=== PATIENT | female | born 1950 | race Caucasian/White ===

== ENCOUNTER 2019-12-21 18:12 | Emergency (ER) | payer BC, OTHER ==
[2019-12-21 18:29] VITALS: BP 158/85; PULSE 74; TEMP 98.5; BMI 26.4
--- NOTE | 2019-12-21 19:11 | PDOC ---
Attending Attestation - Resident Resident Name: Yan Cohen - ED Attending Attestation I have performed the following: I have examined & evaluated the patient, The case was reviewed & discussed with the resident, I agree w/resident's findings & plan, Exceptions are as noted
[2019-12-21] MEDS ORDERED: TETRACAINE 0.5% HCL 0.6ML DROPPER.BOTTLE OS ONE (19:49)
[2019-12-21] MEDS ORDERED: FLUORESCEIN NA 1 EA STRIP OS ONE (19:49)
[2019-12-21] MEDS ORDERED: FLUORESCEIN NA 1 EA STRIP ONE (19:54)
[2019-12-21] MEDS ORDERED: TETRACAINE 0.5% OPHTH SOLN 2 ML BOTTLE ONE (19:54)
--- NOTE | 2019-12-23 08:07 | PDOC ---
Documentation entered by Theresa Barriga SCRIBE, acting as scribe for Armando Randall MD. Armando Randall MD: This documentation has been prepared by the maria [email or web address] ma Lincy, SCRIBE, under my direction and personally reviewed by me in its entirety. I confirm that the documentation accurately reflects all work, treatment, procedures, and medical decision making performed by me. History of Present Illness - General Chief Complaint: Eye Problem Stated Complaint: IRRITATION LEFT EYE WITH SOME BLURRINESS Time Seen by Provider: 12/21/19 18:15 History Source: Patient Exam Limitations: No Limitations - History of Present Illness Initial Comments: 12/21/19 19:49 The patient is a 69-year-old female with a past medical history significant for HTN who presents to the emergency department with redness to the left eye. The patient reports she scratched her left eye a couple of days ago, and presents today with redness and tearing from the left eye. Denies eye pain, vision changes, nausea, vomiting, fever or a headache. Past History - Past Medical History Allergies/Adverse Reactions: Allergies Allergy/AdvReac Type Severity Reaction Status Date / Time No Known Allergies Allergy Verified 12/21/19 18:14 Home Medications: Ambulatory Orders Losartan 50Mg/Hctz 12.5MG [Hyzaar -] 1 tab PO DAILY 09/02/12 Gentamicin 0.3% Eye Drops - 1 - 2 drop OU Q4H #1 bottle 12/21/19 Anemia: Yes (1996) Asthma: No Cancer: Yes (right breast) Cardiac Disorders: No CVA: No COPD: No CHF: No Dementia: No Diabetes: No GI Disorders: No Disorders: No HTN: Yes Hypercholesterolemia: No Liver Disease: No Seizures: No Thyroid Disease: No - Surgical History Abdominal Surgery: Yes (PARTIAL HYSTERECTOMY) Appendectomy: Yes Cardiac Surgery: No Cholecystectomy: No Lung Surgery: No Neurologic Surgery: No Orthopedic Surgery: No - Psycho Social/Smoking Cessation Hx Smoking Status: No Smoking History: Never smoked Number of Cigarettes Smoked Daily: 0 Information on smoking cessation initiated: No Hx Alcohol Use: No Drug/Substance Use Hx: No Substance Use Type: None Hx Substance Use Treatment: No Review of Systems - Review of Systems Able to Perform ROS?: Yes Comments:: CONSTITUTIONAL: Absent: fever, no chills, no fatigue EYES: +left eye redness and tearing. Absent: visual changes ENT: Absent: ear pain, no sore throat CARDIOVASCULAR: Absent: chest pain, no palpitations RESPIRATORY: Absent: cough, no SOB GI: Absent: abdominal pain, no nausea, no vomiting, no constipation, no diarrhea GENITOURINARY: Absent: dysuria, no frequency, no hematuria MUSKULOSKELETAL: Absent: back pain, no arthralgia, no myalgia SKIN: Absent: rash NEURO: Absent: headache *Physical Exam - Vital Signs Last Vital Signs Temp Pulse Resp BP Pulse Ox 98.5 F 74 18 158/85 96 12/21/19 18:14 12/21/19 18:14 12/21/19 18:14 12/21/19 18:14 12/21/19 18:14 - Physical Exam 12/21/19 20:31 GENERAL: Well-appearing, well-nourished. No apparent distress. HEENT: Mild nasal congestion, mild posterior pharyngeal injection. Pupils equal round and reactive to light and accommodation, 4mm, visual zhou intact to confrontation. EOMI full without diplopia conjunctiva injected bilaterally, left worse than right with no ciliary flush. Staining with fluorescein revealed no abrasion or ulceration. NECK: Supple without bruit. CARDIOVASCULAR: Normal S1, S2. Regular rate and rhythm. PULMONARY: Clear to auscultation bilaterally. ABDOMEN: Soft, non-distended, non-tender. EXTREMITIES: Normal ROM in all four extremities. No gross deformities. SKIN: Warm, a little dehydrated. No rash NEUROLOGICAL: No focal neurological deficits. 12/23/19 08:05 Medical Decision Making - Medical Decision Making 12/23/19 08:06 Patient likely has viral conjunctivitis and a mild URI. Staining revealed no sign of corneal abnormality. Symptomatic treatment and follow-up as necessary. Referred to if symptoms persist or worsen. Fully ambulatory and in no distress at discharge Discharge - Discharge Information Problems reviewed: Yes Clinical Impression/Diagnosis: Viral conjunctivitis of both eyes Condition: Stable Disposition: HOME - Admission No - Additional Discharge Information Prescriptions: Gentamicin 0.3% Eye Drops - 1 - 2 drop OU Q4H #1 bottle - Follow up/Referral Referrals: Estuardo Tovar MD [Staff Physician] - 2 Days - Patient Discharge Instructions Patient Printed Discharge Instructions: How to Instill Eye Drops, DI for Red Eye Additional Instructions: Warm compresses. Avoid bright lights, including computers, TV, and cell phones. Medication as directed. If no improvement 24 to 48 hours, consult eye doctor as recommended. - Post Discharge Activity
== END 2019-12-21 20:26 | disposition home or self-care (01) ==
LOC: FER 18:12
DX: B30.9 Viral conjunctivitis, unspecified (principal); I10 Essential (primary) hypertension; Z85.3 Personal history of malignant neoplasm of breast
CPT/HCPCS: 99283-25

== ENCOUNTER 2021-01-16 09:46 | Emergency (ER) | payer OTHER, BC ==
[2021-01-16 09:59] VITALS: BP 176/80; PULSE 62; TEMP 98.7; BMI 25.9
== END 2021-01-16 12:21 | disposition home or self-care (01) ==
LOC: FER 09:46
DX: S00.83XA Contusion of other part of head, initial encounter (principal)
CPT/HCPCS: 70150-TC-FY; 99283-25